=== PATIENT | female | born 1945 | race Caucasian/White ===

== ENCOUNTER 2018-02-17 09:26 | Outpatient (CLI) | payer MEDICARE ==
--- NOTE | 2018-02-17 11:55 | RAD ---
FOUR VIEWS LUMBAR SPINE: HISTORY: Fall, back pain, M54.16 and R93. FINDINGS: AP, lateral, and flexion extension views lumbar spine obtained. Four views of the lumbar spine demonstrate disk space height loss with sclerotic changes seen in the inferior end plate of L3 and superior end plate of L4. This is compatible with some end plate degene rative changes. There also appears to be some irregularity at the L4-5 intervertebral disk space. N o evidence of acute fracture is seen. IMPRESSION: L3-4 and to a lesser degree L4-5 degenerative disk change with adjacent end plate irregularity. No a cute fracture is seen. POS: [facility]
--- NOTE | 2018-02-17 12:06 | CT ---
HEAD CT WITHOUT CONTRAST: HISTORY: The patient fell and hit the left side of the head. COMPARISON: None. TECHNIQUE: A noncontrast head CT is performed from the skull base to the skull vertex. FINDINGS: No parenchymal hemorrhage. No extraaxial hematoma. No midline shift. The basilar cisterns are conte nt. Age appropriate atrophy. Cortical dolan white matter differentiation is preserved. The ventricles and sulci are patent and symmetric. The calvarium is intact. Adequate aeration of the sinuses and mastoid air cells. Cavernous carotid atherosclerosis is noted. IMPRESSION: No intracranial posttraumatic sequelae. POS: [facility]
--- NOTE | 2018-02-17 12:50 | MRI ---
MRI LUMBAR SPINE WITH AND WITHOUT CONTRAST: TECHNIQUE: Multiplanar, multisequential imaging of the lumbar spine obtained. Postcontrast images obtained with administration of 14 cc MultiHance IV. INDICATION: Low back pain. Prior spinal surgery in 2017. COMPARISON: No comparison studies available. FINDINGS: The lumbar vertebrae maintain height and alignment. There are degenerative disk changes at all level s. Loss of disk space most prominent at L1-2, L3-3, and L3-4. There are end plate deformities prese nt at all of the lumbar disk levels above L5. End plate deformities are most prominent at L3-4. Deg enerative end plate changes are noted at multiple levels. There is an indeterminate lesion involving the posterior L5 vertebra which measures approximately 1.0 cm. This lesion is located posteriorly and abuts the superior end plate of L5. It does show mild e nhancement on postcontrast images. It is low T2 and low T1 in intensity. It is not apparent on plai n films performed earlier today. At L1-2, mild disk bulge flattens the thecal sac. Mild facet arthrosis. These changes result in a v jazmin mild central canal stenosis. At L2-3, broad-based disk bulge more prominent. Facet hypertrophy is present. Mild to moderate cent ral canal stenosis is present. Bilateral foraminal stenosis due to diffuse disk bulge and facet hype rtrophy. At L3-4, broad-based disk bulge flattens the thecal sac anteriorly. Facet and ligamentous hypertroph y. Mild to moderate central canal stenosis. Bilateral foraminal stenosis secondary to disk bulge an d hypertrophic change. At L4-5, diffuse disk bulge combined with facet hypertrophy results in mild to moderate central canal stenosis. Bilateral foraminal narrowing is also present at this level. At L5-S1, mild diffuse disk bulge. No significant central canal stenosis. Disk bulge extends into t he foramina bilaterally and appears to contact both exiting L5 nerve roots. Facet hypertrophy and ar throsis is noted. IMPRESSION: 1. Degenerative disk changes at multiple levels of the lumbar spine with posterior disk bulge and de grees of central canal stenosis and foraminal encroachment as described above. 2. There is an indeterminate lesion involving the L5 vertebra posteriorly which does show enhancemen t on postcontrast images. Metastatic lesion is not excluded. Close followup recommended. If there is a history of malignancy in this patient, recommend further evaluation with bone scan. POS: [facility]
[2018-02-17] MEDS ORDERED: Gadobenate Dimeglumine 529 MG/1 ML (20ML VIAL) ONE (13:42)
== END 2018-02-17 09:27 | disposition home or self-care (01) ==
LOC: TBSIIMAG 09:26
PROVIDERS: ATTEND Surgery
DX: M47.26 Other spondylosis with radiculopathy, lumbar region (principal); R93.0 Abnormal findings on diagnostic imaging of skull and head, not elsewhere classified; M48.061 Spinal stenosis, lumbar region without neurogenic claudication; M89.9 Disorder of bone, unspecified
CPT/HCPCS: 70450; 72120; 72158; 82565; A9579

== ENCOUNTER 2018-05-03 09:42 | Outpatient (CLI) | payer MEDICARE ==
--- NOTE | 2018-05-03 12:39 | MRI ---
MRI THORACIC SPINE NONCONTRAST: DATE: 05/03/18. HISTORY: A 72-year-old female with thoracic radiculitis. COMPARISON: None. FINDINGS: There are multiple focal intraosseous lesions of varying sizes that are hypointense on T1WI heterogen eously hyperintense on STIR, in many vertebral bodies, and some in pedicles, and a few at spinous pro cesses. Almost every thoracic vertebral body is involved, with the exceptions of T2, T7, and T11. M inimal chronic loss of height of several vertebral bodies, but no acute or subacute compression fract ure; no marrow edema. No high-grade central spinal canal stenosis or high-grade neural foraminal humaira nosis at any level in the thoracic spine. No cord impingement or priynaka nerve root impingement at any level. No moderate-sized or large disk herniation that protrudes into the spinal canal. No major p athology of perivertebral spaces. IMPRESSION: 1. Numerous focal intraosseous lesions: either osseous metastases or multiple myeloma, involving mos t levels of the thoracic spine (and upper lumbar spine). 2. No central spinal canal stenosis, high-grade neural foraminal stenosis, cord impingement, or nerv e root impingement, at any level in the thoracic spine. 3. No pathologic fracture. Code T POS: [facility]
== END 2018-05-03 09:43 | disposition home or self-care (01) ==
LOC: SCSMRI 09:42
PROVIDERS: ATTEND Specialist
DX: M54.14 Radiculopathy, thoracic region (principal)
CPT/HCPCS: 72146

== ENCOUNTER 2018-05-17 12:08 | Outpatient (CLI) | payer MEDICARE | END 2018-05-17 12:09 | disposition home or self-care (01) | LOC: BICRAD 12:08 | PROVIDERS: ATTEND Internal Medicine Medical Oncology | DX: C90.00 Multiple myeloma not having achieved remission (principal) | CPT/HCPCS: 36415; 71046; 77075; 80053; 82232; 82248; 83615; 83883; 84100; 84165; 84550 ==

== ENCOUNTER 2018-05-25 09:18 | Outpatient (CLI) | payer MEDICARE ==
--- NOTE | 2018-05-25 14:27 | NM ---
NUCLEAR MEDICINE BONE SCAN: COMPARISON: None. HISTORY: Secondary malignant neoplasm of the spine. COMPARISON: MRI thoracic spine 05/03/18. TECHNIQUE: A nuclear medicine bone scan was performed after the administration of 31.6 mCi of Technetium 99m-MDP . FINDINGS: Abnormal increased uptake of the radiopharmaceutical was seen throughout the spine. The includes the cervical, thoracic, and lumbar spine. Abnormal uptake of radiopharmaceutical was seen in the left s houlder near the glenoid. Abnormal uptake may also be present in the proximal aspect of both humeri. Abnormal uptake is seen on the anterior view in the right skull. Soft tissue activity is unremarkable. IMPRESSION: Multifocal areas of abnormal uptake of the radiopharmaceutical is suspicious for osseous metastatic d isease. POS: [facility]
== END 2018-05-25 09:19 | disposition home or self-care (01) ==
LOC: NM 09:18
PROVIDERS: ATTEND Internal Medicine Medical Oncology
DX: C79.51 Secondary malignant neoplasm of bone (principal); C80.1 Malignant (primary) neoplasm, unspecified; R94.8 Abnormal results of function studies of other organs and systems
CPT/HCPCS: 78306; A9503

== ENCOUNTER 2018-06-03 13:24 | Outpatient (CLI) | payer MEDICARE ==
--- NOTE | 2018-06-03 16:08 | PET ---
PET CT: HISTORY: Unknown primary to bone. TECHNIQUE: PET scanning with CT attenuation correction was performed from the base of the brain through the prox imal thighs following the intravenous administration of 13.6 mCi F18-FDG in the left antecubital mike a. Imaging was performed after an uptake interval of 58 minutes. CORRELATION: Bone scan dated 05/25/18. MRI thoracic spine dated 05/03/18. MRI lumbar spine dated 02/17/18. FINDINGS: Numerous hypermetabolic skeletal lesions are seen involving the humeral heads bilaterally, ribs, enti re spine, and pelvis. There are a couple of hypermetabolic periaortic lymph nodes with a SUV of 3.6 in the aortocaval lymph node and 3.4 in the lymph node anterior to the aorta. No [place] hypermetabolism is seen in the neck, chest, or pelvis. No hypermetabolic pulmonary nodules, liver, or adrenal lesions are identified. There is physiologic activity in the GI and tracts, and the visualized portions of the brain. CT scan used for attenuation correction demonstrates no evidence of pleural effusions or ascites. IMPRESSION: Diffuse osseous metastatic disease and retroperitoneal lymph [place] metastases. POS: [facility]
== END 2018-06-03 13:25 | disposition home or self-care (01) ==
LOC: PET 13:24
PROVIDERS: ATTEND Internal Medicine Hematology & Oncology
DX: C79.51 Secondary malignant neoplasm of bone (principal); C80.1 Malignant (primary) neoplasm, unspecified; C77.2 Secondary and unspecified malignant neoplasm of intra-abdominal lymph nodes
CPT/HCPCS: 78815; A9552

== ENCOUNTER 2018-06-09 11:11 | Day surgery (SDC) | payer MEDICARE ==
[2018-06-08 13:05] VITALS: BMI 30.9
[2018-06-09 11:44] LABS: INR-International Normal Ratio 1.2; PTT 34.4 SEC (22.9-36.1); Prothrombin Time 14.8 SEC (12.0-14.7)
[2018-06-09 12:45] VITALS: BP 140/78; TEMP 98.4
--- NOTE | 2018-06-09 16:26 | CT ---
CT GUIDED BONE BIOPSY: Date: 06/09/18 HISTORY: Bone lesion biopsy. COMPARISON: PET CT dated 06/03/18. TECHNIQUE/FINDINGS: Patient was brought to the CT suite. All questions were answered. The patient's buttocks were prepped and draped in the normal sterile fashion, as the patient was in the prone position on the CT gantry. Informed consent was already obtained. Timeout performed. 7 mL of buffered lidocaine was instilled i nto the superficial and deep soft tissues. After adequate anesthesia, a small dermatotomy was made. U sing a 10 gauge needle, the sclerotic area of the left iliac bone was accessed. A total of two 2.0 cm cores were obtained. Pathology was present and demonstrated adequacy. IMPRESSION: Technically successful CT guided bone biopsy. POS: [facility]
== END 2018-06-09 15:15 | disposition home or self-care (01) ==
LOC: CT 11:11
PROVIDERS: ATTEND Internal Medicine Hematology & Oncology
PROC: 0QB33ZX Excision of Left Pelvic Bone, Percutaneous Approach, Diagnostic (ICD-10-PCS; principal; 2018-06-09)
DX: C79.51 Secondary malignant neoplasm of bone (principal); E03.9 Hypothyroidism, unspecified; Z87.891 Personal history of nicotine dependence; Z79.899 Other long term (current) drug therapy; Z88.1 Allergy status to other antibiotic agents
CPT/HCPCS: 20225; 77002; 85610; 85730; 88307; 88311; 88341; 88342; 88360

== ENCOUNTER 2018-07-12 12:18 | Outpatient (CLI) | payer MEDICARE ==
--- NOTE | 2018-07-14 15:53 | NM ---
OCTREOSCAN STUDY: 07/14/18 INDICATION: History of osseous metastatic disease without primary malignancy localized. RADIOPHARMACEUTICAL: 5.8 millicuries of Indium 111 octreoscan. Whole body images were obtained at the 24 and 48 time period. SPECT images were obtained at the 24 ho ur time period. Comparisons are made with prior whole body bone scan dated 05/25/[address] dated . FINDINGS: There is expected background activity seen within the spleen, liver, and kidneys as well as within th e blood pool. This persists on the 48 hour whole body images. No abnormal collection of radiotracer i s seen beyond the normal expected background activity. IMPRESSION: Negative octreoscan. POS: [facility]
== END 2018-07-12 12:19 | disposition home or self-care (01) ==
LOC: NM 12:18
PROVIDERS: ATTEND Internal Medicine Hematology & Oncology
DX: C79.51 Secondary malignant neoplasm of bone (principal)
CPT/HCPCS: 78802; 78803; A4641; A9572

== ENCOUNTER 2018-07-23 11:39 | Day surgery (SDC) | payer MEDICARE ==
[2018-07-22 08:26] VITALS: BMI 30.6
[2018-07-23 12:40] LABS: #Eosinphils 0.1 thou/uL (0.0-0.7); #Lymphocytes 0.8 thou/uL (1.20-3.40); #Monocytes 0.6 thou/uL (0.11-0.59); #Neutrophils 5.8 thou/uL (1.40-6.50); %Basophils 0.4 % (0.0-1.0); %Eosinophils 0.9 % (0.0-10.0); %Lymphocytes 11.6 % (21.0-51.0); %Monocytes 7.6 % (0.0-10.0); %Neutrophils 79.5 % (42.0-75.0); Hemoglobin 12.2 g/dL (12.0-16.0); Mean Corpuscular HGB CONC 32.4 g/dL (32.0-36.0); Mean Corpuscular Hemoglobin 29.8 pg (27.0-31.0); Mean Corpuscular Volume 92.2 fL (78.0-98.0); Mean Platelet Volume 9.5 fL (7.4-10.4); Platelet Count 110 thou/uL (130-400); RBC Distribution Width 13.3 % (11.5-14.5); Red Blood Cell (RBC) Count 4.07 mill/uL (4.20-5.40); White Blood Cell (WBC) Count 7.3 thou/uL (4.8-10.8)
[2018-07-23 13:01] LABS: Anion Gap 11 mmol/L (10-20); BUN (Urea Nitrogen) 12 mg/dL (9.8-20.1); Calc. Creatinine Clearance 82 mL/min (70-130); Carbon Dioxide 21 mmol/L (23-31); Chloride 104 mmol/L (98-107); Estimated GFR-MDRD 79; Potassium 3.8 mmol/L (3.5-5.1); Sodium 132 mmol/L (136-145)
[2018-07-23 13:02] LABS: Calcium 7.5 mg/dL (7.8-10.44); Glucose 115 mg/dL (83-110)
[2018-07-23] MEDS ORDERED: CEFAZOLIN 2 GM/50 ML BAG ONE (13:33)
[2018-07-23] MEDS ORDERED: PHENYLEPHRINE-NS 100 MCG/ML 10 ML SYRINGE ONE (13:48)
[2018-07-23] MEDS ORDERED: Lidocaine 1% PF 5 ML VIAL ONE (13:48)
[2018-07-23] MEDS ORDERED: PROPOFOL 200 MG/20 ML VIAL ONE (13:48)
[2018-07-23] MEDS ORDERED: Midazolam HCl 2 mg/2 ml Vial ONE (14:52)
[2018-07-23] MEDS ORDERED: Fentanyl 100 MCG/2 ML VIAL ONE ×2 (14:52→15:19)
[2018-07-23] MEDS ORDERED: Bupivacaine/Epinephrine 0.25% 30 ML VIAL ONE (15:27)
[2018-07-23] MEDS ORDERED: Lidocaine 2% PF 5 ML VIAL ONE (15:27)
--- NOTE | 2018-07-23 17:49 | RAD ---
PORTABLE CHEST: History: Mediport catheter placement. FINDINGS: Heart size is within normal limits. Left sided Mediport catheter is seen. The catheter tip overlies t he superior vena cava. No signs of pneumothorax. IMPRESSION: Post Mediport catheter placement. No signs of pneumothorax. POS: [facility]
--- NOTE | 2018-07-26 14:03 | OP ---
DATE OF PROCEDURE: 07/23/2018 PROCEDURE PERFORMED: Left subclavian MediPort placement. PREOPERATIVE DIAGNOSIS: Metastatic carcinoid tumor. HISTORY: Ms. Matson is a 72-year-old woman with metastatic carcinoid tumor of unclear origin. She re quires MediPort placement for ongoing chemotherapy. PROCEDURE IN DETAIL: After informed consent was obtained and appropriate preoperative antibiotics ad ministered, the patient was taken to the operating room where she was placed in the supine position a nd anesthesia was administered. She was prepped and draped in a standard sterile fashion and local a nesthesia was infused to skin and subcutaneous tissues overlying the deltopectoral groove. The patie nt was placed in Trendelenburg position and left subclavian vein was easily accessed by the standard approach with excellent flow of dark venous non-pulsatile blood. A wire was threaded and confirmed b y fluoroscopy to be in superior vena cava. A subcutaneous pocket was created and a MediPort po cket secured with suture. The dilator and sheath were placed over the wire, and the dilator and wire removed leaving the sheath in place. A MediPort tubing was advanced through the sheath, which was s plit secured and easily aspirated dark venous nonpulsatile blood. tissues were reapproxi mated with Monocryl suture and the skin incisions were closed with Monocryl suture. Jairo mabond dressings were placed and the patient was taken to the recovery in good condition. Estimated blood loss was minimal. There were no complications. There were no specimens.
== END 2018-07-23 18:00 | disposition home or self-care (01) ==
LOC: SDC 11:39
PROVIDERS: ATTEND Surgery
PROC: 0JH63WZ Insertion of Totally Implantable Vascular Access Device into Chest Subcutaneous Tissue and Fascia, Percutaneous Approach (ICD-10-PCS; principal; 2018-07-23)
DX: C7A.00 Malignant carcinoid tumor of unspecified site (principal); C7B.03 Secondary carcinoid tumors of bone; M48.00 Spinal stenosis, site unspecified; J45.909 Unspecified asthma, uncomplicated; E07.9 Disorder of thyroid, unspecified; Z87.891 Personal history of nicotine dependence; Z79.891 Long term (current) use of opiate analgesic; Z79.899 Other long term (current) drug therapy; Z88.1 Allergy status to other antibiotic agents; Z88.2 Allergy status to sulfonamides; Z88.8 Allergy status to other drugs, medicaments and biological substances; Z91.040 Latex allergy status
CPT/HCPCS: 36561; 71045; 76000; 80048; 85025; C1788; 36415; J1642; J2001; J2250; J2704; J3010

== ENCOUNTER 2018-08-25 11:58 | Inpatient (IN) | payer MEDICARE ==
[~2018-08-25 11:58] MED LIST: Iopamidol 370 76% 100 ML VIAL ONE
[2018-08-25 13:20] LABS: #Lymphocytes 0.9 thou/uL (1.20-3.40); #Monocytes 0.2 thou/uL (0.11-0.59); #Neutrophils 6.9 thou/uL (1.40-6.50); %Basophils 0.2 % (0.0-1.0); %Eosinophils 0.2 % (0.0-10.0); %Lymphocytes 11.4 % (21.0-51.0); %Monocytes 2.5 % (0.0-10.0); %Neutrophils 85.7 % (42.0-75.0); Hemoglobin 11.2 g/dL (12.0-16.0); Mean Corpuscular HGB CONC 33.8 g/dL (32.0-36.0); Mean Corpuscular Hemoglobin 30.8 pg (27.0-31.0); Mean Corpuscular Volume 91.1 fL (78.0-98.0); Mean Platelet Volume 9.8 fL (7.4-10.4); Platelet Count 141 thou/uL (130-400); RBC Distribution Width 15.8 % (11.5-14.5); Red Blood Cell (RBC) Count 3.63 mill/uL (4.20-5.40); White Blood Cell (WBC) Count 8.1 thou/uL (4.8-10.8)
[2018-08-25] MEDS ORDERED: Morphine 2 MG/ML SYRINGE ONE (13:21)
[2018-08-25 13:25] LABS: INR-International Normal Ratio 1.9; PTT 33.4 SEC (22.9-36.1); Prothrombin Time 21.9 SEC (12.0-14.7)
[2018-08-25 13:48] LABS: ALT (SGPT) 15 U/L (8-55); AST (SGOT) 25 U/L (5-34); Albumin 3.4 g/dL (3.4-4.8); Alkaline Phosphatase 428 U/L (40-150); Anion Gap 12 mmol/L (10-20); BUN (Urea Nitrogen) 12 mg/dL (9.8-20.1); Bilirubin, Total 1.5 mg/dL (0.2-1.2); CK (CPK) 62 U/L (29-168); Calc. Creatinine Clearance 0 mL/min (70-130); Calcium 7.2 mg/dL (7.8-10.44); Carbon Dioxide 15 mmol/L (23-31); Chloride 114 mmol/L (98-107); Estimated GFR-MDRD 74; Globulin 2.7 g/dL (2.4-3.5); Glucose 125 mg/dL (83-110); Lipase 39 U/L (8-78); Potassium 3.8 mmol/L (3.5-5.1); Protein, Total 6.1 g/dL (6.0-8.3); Sodium 137 mmol/L (136-145)
--- NOTE | 2018-08-25 14:08 | RAD ---
SINGLE VIEW OF THE CHEST: Comparison: 07-23-18 History: Nausea, vomiting. Patient is taking chemotherapy for bone metastases and history of myeloma. FINDINGS: Single view of the chest shows a normal sized cardiomediastinal silhouette. The Mediport is unchanged in position. There is no evidence of consolidation, mass, or pleural effusion. IMPRESSION: No evidence of acute cardiopulmonary disease. POS: [facility]
--- NOTE | 2018-08-25 14:15 | CT ---
CT ABDOMEN AND PELVIS WITH CONTRAST: Comparison: 02-24-15 History: Abdominal pain and bloody diarrhea. Patient is on chemotherapy for bone metastases. History of multiple myeloma. Technique: Multiple contiguous axial images were obtained in a CT of the abdomen and pelvis with cont rast. Coronal reformats were performed. FINDINGS: The gallbladder is distended. The liver, kidneys, adrenal glands, spleen, and pancreas are unremarkab le. There is apparent thickening of the wall of the rectum and sigmoid colon. A few scattered diverticula are seen in this location. No free air or free fluid are seen in the abdomen or pelvis. The remainde r of the colon shows no significant wall thickening. The small bowel is normal in caliber without sig nificant distention. No abnormal or pelvic lymphadenopathy are seen. The reproductive organs are eith er atrophic or have been removed. There appears to be air in the wall of the urinary bladder. A small amount of nondependent air is also seen in the urinary bladder. Diffuse sclerotic lesions are seen in the skeleton consistent with osseous metastatic disease. The vi sualized inferior thorax and abdominal wall soft tissues are unremarkable. IMPRESSION: 1. Nonspecific thickening of the chiu of the colon. This could be secondary to colitis. 2. Air in the urinary bladder. This could be secondary to an emphysematous cystitis. 3. Nonspecific distention of the gallbladder. This could be secondary to a fasting state. POS: [facility]
[2018-08-25 14:35] LABS: Bilirubin Negative (Negative); Blood, Urine Small (Negative); Clarity TURBID (Clear); Glucose, Urine (Dipstick) Negative (Negative); Leukocyte Large (Negative); Nitrite Negative (Negative); Protein, Urine (Dipstick) Trace mg/dL (Neg-Trace); Specific Gravity, Urine 1.018 (1.002-1.036); Urobilinogen 0.2 mg/dL (0.2-1.0)
[2018-08-25 14:39] LABS: Hyaline Casts/LPF 0-3 HYALINE CAST LPF (0-3 Hyaline); Pathc Cast-AUWi Flag 0.43 (0-2.49); Squamous Epithelial 0-3 HPF (0-3)
[2018-08-25 14:40] LABS: Yeast-AUWi Flag 56.4 (0-25.0)
[2018-08-25 14:53] LABS: Bacteria/HPF 3+ HPF (None Seen); Yeast-All Forms None Seen HPF (None Seen)
[2018-08-25] MEDS ORDERED: Cefepime 1 GM in Sodium Chloride 0.9% 100 ML IVPB SCH (16:00)
[2018-08-25] MEDS ORDERED: Pantoprazole 40 MG VIAL ONE (16:05)
[2018-08-25] MEDS ORDERED: HYDROcodone/Acetaminophen 10/325 mg Tablet ONE (16:16)
[2018-08-25] MEDS ORDERED: metroNIDAZOLE 500 MG/100 ML BAG ONE (16:18)
[2018-08-25 16:38] LABS: Magnesium 0.8 mg/dL (1.6-2.6)
[2018-08-25] MEDS ORDERED: Magnesium Sulfate 4 GM in Sodium Chloride 0.9% 250 ML 250 ML IVPB SCH (17:00)
[2018-08-25] MEDS ORDERED: Senokot S 8.6-50 MG TAB PO PRN (17:33)
[2018-08-25] MEDS ORDERED: Ondansetron ODT 4 MG TAB PO PRN (17:33)
[2018-08-25] MEDS ORDERED: Calcium Carbonate 500 MG ChewTAB PO PRN (17:33)
[2018-08-25] MEDS ORDERED: Acetaminophen 325 MG TAB PO PRN (17:33)
[2018-08-25] MEDS ORDERED: Ondansetron PF 4 MG/2 ML Vial IVP PRN (17:33)
[2018-08-25 17:48] VITALS: BMI 29.2
[2018-08-25] MEDS: Sodium Bicarbonate 50 MEQ in Dextrose 5 %-0.45 % NaCl 1,000 ML IV SCH (18:17)
[2018-08-25 19:04] LABS: Hemoglobin 10.9 g/dL (12.0-16.0)
--- NOTE | 2018-08-25 19:21 | HP ---
PRIMARY CARE PHYSICIAN: Dr. Quan in [place]. PRIMARY ONCOLOGIST: Dr. Kline. PRIMARY WIRE TINNER: Dr. Everett. CHIEF COMPLAINT: Bleeding per rectum of 1-day duration along with abdominal discomfort. HISTORY OF PRESENT ILLNESS: The patient is a 72-year-old female with multiple myeloma, currently on chemotherapy, presented to the emergency room with above symptoms. Over the last 24 hours, the patient developed loose stools which were bloody along with mucus. She also had abdominal discomfort mainly around the periumbilical region. It was 4/10 without any aggravating or relieving factor. She felt generally weak and fatigued. She also lost her appetite. She was seen by Dr. Kline recently and was found to have absolute neutrophil count of 1200. She was advised to use mask at home to prevent getting infections. She denies recent travel or eating outside. No dysuria, hematuria, urgency, nausea, vomiting, or significant weight loss reported. In the emergency room, her initial vital signs show temperature 98.5, respiration of 20, pulse rate of 92 with a blood pressure of 135/89 with O2 saturation 98% on room air. A CT scan of the abdomen was consistent with colitis with suspected emphysematous cystitis. She was started on antibiotics. PAST MEDICAL HISTORY: 1. Multiple myeloma. 2. GERD. 3. Hypothyroidism. 4. Chronic pain. 5. Renal calculi. 6. History of compression fractures. PAST SURGICAL HISTORY: 1. Intestinal bypass in 1971. 2. Bladder repair. 3. Bilateral cataract surgery. ALLERGIES: 1. THE PATIENT IS ALLERGIC TO CIPROFLOXACIN THAT CAUSES HER TONGUE TO SWELL. 2. THE PATIENT IS ALSO ALLERGIC TO BACTRIM AND LATEX. CURRENT HOME MEDICATIONS: Levothyroxine 50 mcg daily, [place] as needed, OxyContin 15 mg twice a day, spironolactone and Prilosec as needed. SOCIAL HISTORY: The patient currently lives at home with her family. She denies any tobacco, alcohol, or drug use. She makes her own decision with the help of her family. She is full code. FAMILY HISTORY: Mother with hypertension and diabetes. One brother with stroke. REVIEW OF SYSTEMS: All other review of systems was reviewed and were found negative. PHYSICAL EXAMINATION: VITAL SIGNS: As discussed above. GENERAL: A 72-year-old female, ill-appearing, with multiple blankets covering her. HEENT: Head, atraumatic and normocephalic. Sclerae are anicteric. Dry mucous membranes. No oral lesions. NECK: Supple. No JVD appreciated. No carotid bruit. LUNGS: Clear to auscultation bilaterally. No wheezing, rales, or rhonchi. HEART: S1 and S2 present. Regular rate and rhythm. No rubs or gallops appreciated. ABDOMEN: Soft. There was tenderness around the periumbilical region. No guarding or rigidity noted. No costovertebral angle tenderness. RECTAL: Examination done in the emergency room showed external hemorrhoids along with some blood in the rectum. EXTREMITIES: No edema or calf tenderness. NEUROLOGY: Grossly nonfocal. Moves all 4 extremities. PSYCHIATRY: Alert, awake, and oriented x3. SKIN: Warm and dry. LYMPH NODES: No palpable lymph nodes in the neck. Peripheral, vascular, radial pulses palpable bilaterally. MUSCULOSKELETAL: No joint swelling or tenderness. LABORATORY FINDINGS: WBC is 8.1 from 3.2 last week, hemoglobin 11.2, platelet 141, neutrophil percentage 85.7, INR 1.9, PT 21.9. Chemistry showed sodium 137, potassium 3.8, chloride 114, bicarb 15, BUN 12, creatinine 0.77, phosphorus 2.0, magnesium 0.8, total bilirubin 1.5, alkaline phosphatase 428, it was 525 last week. Urinalysis showed greater than 50 wbc's with 3+ bacteria. Stool for occult blood was positive. CT scan of the abdomen and pelvis by my review, as discussed above. Chest x-ray by my review was negative for infiltrate. EKG by my review showed sinus rhythm without significant ST-T wave changes. This showed left ventricular hypertrophy. IMPRESSION: 1. Sepsis secondary to urinary tract infection as well as colitis. 2. Emphysematous cystitis/urinary tract infection. 3. Colitis, suspected infectious. 4. Metabolic acidosis with normal lactic acid. 5. Abnormal LFTs of unclear etiology. 6. Hypomagnesemia at 0.8, hypophosphatemia, phosphorus is 2.0. 7. Multiple myeloma, on chemotherapy. 8. Hypertension with hypertensive heart disease. 9. Chronic pain syndrome. 10. Hypothyroidism. PLAN: The patient will be monitored on the medical floor. We will replace electrolytes. We will consult Oncology as well as Gastroenterology. We will monitor H and H. We will continue IV fluids with sodium bicarbonate. We will start her on cefepime as well as Flagyl. Stool workup will be sent. Urine cultures have been sent and pending. We will check postvoid residual. We will resume other home medications. Plan of care was discussed with the patient in detail. She stated understanding. Job ID: [id number]
[2018-08-25] MEDS: oxyCODONE ER 10 MG TAB PO SCH (20:35)
[2018-08-25] MEDS: metroNIDAZOLE 500 MG in Premix Bag 1 BAG IVPB SCH (22:53)
[2018-08-26] MEDS: Sodium Bicarbonate 50 MEQ in Dextrose 5 %-0.45 % NaCl 1,000 ML IV SCH ×3 (00:30→20:47)
[2018-08-26 00:44] LABS: Hemoglobin 10.4 g/dL (12.0-16.0)
[2018-08-26 01:15] LABS: ALT (SGPT) 14 U/L (8-55); AST (SGOT) 22 U/L (5-34); Albumin 3.3 g/dL (3.4-4.8); Alkaline Phosphatase 393 U/L (40-150); Anion Gap 12 mmol/L (10-20); BUN (Urea Nitrogen) 10 mg/dL (9.8-20.1); Bilirubin, Total 1.6 mg/dL (0.2-1.2); Calc. Creatinine Clearance 78 mL/min (70-130); Carbon Dioxide 16 mmol/L (23-31); Chloride 114 mmol/L (98-107); Estimated GFR-MDRD 79; Globulin 2.5 g/dL (2.4-3.5); Glucose 129 mg/dL (83-110); Magnesium 1.9 mg/dL (1.6-2.6); Potassium 3.6 mmol/L (3.5-5.1); Protein, Total 5.8 g/dL (6.0-8.3); Sodium 138 mmol/L (136-145)
[2018-08-26 01:19] LABS: Phosphorus 1.9 mg/dL (2.3-4.7)
[2018-08-26] MEDS: Levothyroxine Sodium 50 MCG TAB PO SCH (05:29)
[2018-08-26] MEDS: metroNIDAZOLE 500 MG in Premix Bag 1 BAG IVPB SCH ×3 (05:29→22:56)
[2018-08-26] MEDS: HYDROcodone/Acetaminophen 10/325 mg Tablet PO PRN ×2 (05:37→12:44)
[2018-08-26 06:12] LABS: Band 8 % (5-11); Hemoglobin 9.9 g/dL (12.0-16.0); Lymphocytes 13 % (21-51); MDiff Complete? YES; Mean Corpuscular HGB CONC 34.5 g/dL (32.0-36.0); Mean Corpuscular Hemoglobin 31.1 pg (27.0-31.0); Mean Corpuscular Volume 89.9 fL (78.0-98.0); Monocytes 1 % (0-10); Neutrophil 78 % (42-75); Platelet Count 128 thou/uL (130-400); RBC Distribution Width 15.8 % (11.5-14.5); Red Blood Cell (RBC) Count 3.19 mill/uL (4.20-5.40); White Blood Cell (WBC) Count 8.6 thou/uL (4.8-10.8)
[2018-08-26 07:30] LABS: Hemoglobin 10.4 g/dL (12.0-16.0)
[2018-08-26] MEDS: Folic Acid 1 MG TAB PO SCH (08:02)
[2018-08-26] MEDS: K-Phos Neutral 250 MG TAB PO SCH ×3 (08:02→17:24)
[2018-08-26] MEDS: Cefepime 1 GM in Sodium Chloride 0.9% 100 ML IVPB SCH ×2 (08:02→20:48)
[2018-08-26] MEDS: Cyanocobalamin (Vitamin B-12) 1,000 MCG TAB PO SCH (08:02)
[2018-08-26] MEDS: Multivit, Therapeutic 1 TAB PO SCH (08:02)
[2018-08-26] MEDS: oxyCODONE ER 10 MG TAB PO SCH ×2 (08:04→20:52)
--- NOTE | 2018-08-26 08:49 | ULT ---
RIGHT UPPER QUADRANT ULTRASOUND: DATE: 08/26/2018. COMPARISON: None. HISTORY: Abnormal liver function tests, sepsis. TECHNIQUE: Multiplanar, dolan scale sonographic imaging of the right upper quadrant obtained. FINDINGS: Evaluation of the pancreas demonstrates nonspecific diffuse mild prominence of the pancreatic duct me asuring 3-4 mm in AP dimension. However, the common bile duct does not appear dilated, measuring in the 5-6 mm range. There is mild peripheral irregularity involving the hepatic parenchyma with heterogeneity of the hepa tic parenchyma, which may signify underlying hepatocellular disease. There is nonspecific distention of the gallbladder, measuring 5.1 cm in transverse dimension. There is echogenic material within the gallbladder which may signify nonshadowing small stones and/or gallbladder sludge. The gallbladder is mildly thickened measuring in the 3-4 mm range. The structures engineer reports a positive Murillo's sign. The right kidney measured 11.6 cm craniocaudal dim ension and demonstrates no stone, hydronephrosis, or mass lesion. IMPRESSION: The gallbladder is distended, there is mild gallbladder wall thickening, and the structures engineer reports a positive Murillo's sign. Findings are suspicious for cholecystitis in the proper clinical setting. This could be better assessed via hepatobiliary scan as clinically warranted. CODE T POS: [facility]
[2018-08-26] MEDS ORDERED: Phytonadione 10 MG/ML AMP PO SCH (09:00)
--- NOTE | 2018-08-26 16:09 | CON ---
DATE OF CONSULTATION: REASON FOR CONSULTATION: Neuroendocrine tumor. HISTORY OF PRESENT ILLNESS: A 72-year-old female with history of metastatic neuroendocrine tumor with mets to bones. Currently, on upper sioux and etoposide chemotherapy with good clinical response thus far, presenting to the hospital with bloody diarrhea over the last 24 hours. I saw the patient in clinic on Thursday, August 23, 2018, and the patient appeared very well, and her severe pain from her bone mets had dramatically improved, and she reported no other symptoms. Beginning Thursday around 11 a.m., she began having blood diarrhea, multiple episodes. She thought it would improve, but it worsened overnight and that brought her into the hospital on Saturday, August 25, 2018. She denies any nausea, vomiting, any headache, blurry vision, dizziness, fevers, or chills. She denies any current abdominal pain, any burning on urination, or urinary frequency. The patient had a CT of the abdomen in the ER that showed colitis and possible emphysematous cystitis. Urinalysis was consistent with UTI. She was started on cefepime and flagyl. REVIEW OF SYSTEMS: A 10-point review of systems negative except as per HPI. PAST MEDICAL HISTORY: Neuroendocrine tumor with mets to bone, currently on chemotherapy; hypothyroidism; acid reflux; kidney stones; and history of compression fractures. PAST SURGICAL HISTORY: Bilateral cataract repair, bladder repair, and intestinal bypass in 1971. ALLERGIES: CIPROFLOXACIN, BACTRIM, AND LATEX. CURRENT MEDICATIONS: Reviewed. SOCIAL HISTORY: Lives at home with her family. No tobacco, alcohol, or drug use. FAMILY HISTORY: No family history of cancer. PHYSICAL EXAMINATION: VITAL SIGNS: Temperature 98.1, pulse 82, respirations 18, sating 97% on room air, and blood pressure 128/67. GENERAL APPEARANCE: The patient lying in bed, in no acute distress. HEENT: Normocephalic, atraumatic. NECK: Supple. CARDIOVASCULAR: S1 and S2. Regular rhythm and rate. RESPIRATION: Clear to auscultation bilaterally without wheezes, rales, or rhonchi. ABDOMEN: Soft, nondistended, and nontender. No right upper quadrant tenderness. Bowel sounds positive. EXTREMITIES: No peripheral edema. NEUROLOGIC: Nonfocal. Cranial nerves 2 through 12 are grossly intact. PSYCHIATRIC: Awake, alert, oriented x3. LABORATORY DATA: White blood cells 8.6; hemoglobin 11.2 on admission, currently 10.4; platelets 128; neutrophils 85.7%; and absolute neutrophil count of 6.9. Sodium 138, potassium 3.6, BUN 10, creatinine 0.73, glucose 129, calcium 7.0 with albumin 3.3, phosphorus 1.9, magnesium 0.8 up to 1.9, and alkaline phosphatase 393. IMAGING DATA: Chest x-ray shows no evidence of acute cardiopulmonary disease. CT of the abdomen and pelvis with contrast shows nonspecific thickening of the chiu of the colon, possibly secondary to colitis. Also, shows air in the urinary bladder, which could be secondary to emphysematous cystitis and nonspecific distention in the gallbladder. Right upper quadrant ultrasound shows distended gallbladder with mild gallbladder wall thickening and positive Murillo sign elicited by stenographer. Findings are suspicious for cholecystitis in the proper clinical setting. ASSESSMENT AND PLAN: A 72-year-old female with neuroendocrine carcinoma with mets to bone, currently on chemotherapy, presenting with bloody diarrhea and urinary tract infection. The patient is not neutropenic and is currently on cefepime and flagyl for colitis and urinary tract infection. She is still having bloody diarrhea, however, she states the amount of blood is decreasing. She has dropped a gram in her hemoglobin, but this is currently stable as well. Her vital signs are stable, and she is not tachycardic. The patient appears very well. We will continue to monitor her blood counts as she just received chemotherapy and they may drop. She had planned to get Neulasta after finishing chemotherapy, however, was not able to get the last day due to hospital admission. If her counts do drop, we can give her Neupogen injections. I agree with GI consult and continuing her antibiotics. Ultrasound did show possible cholecystitis, however, the patient does not elicit any signs or symptoms of this at this time. We will continue to follow with you. Thank you for this consult. Job ID: [id number]
[2018-08-26] MEDS ORDERED: Melatonin 3 MG TAB PO PRN (19:49)
--- NOTE | 2018-08-26 22:00 | PDOC.PN ---
- Subjective Encounter Start Date: 08/26/18 Encounter Start Time: 09:00 Patient seen and examined for Sepsis. Feeling better. some diarrhea. No hematochezia. No other complaints. No overnight events - Objective Resuscitation Status - Order Detail: 08/25/18 17:33 Resuscitation Status Routine Resuscitation Status: FULL: Full Resuscitation MAR Reviewed: Yes Vital Signs & Weight: Vital Signs (12 hours) Temp Pulse Pulse Pulse Pulse Resp BP 08/26/18 16:20 98.5 F 82 16 08/26/18 10:30 82 82 82 142/59 H 08/26/18 10:24 82 82 82 132/75 BP BP BP Pulse Ox 08/26/18 16:20 117/67 97 08/26/18 10:30 145/73 H 132/75 08/26/18 10:24 145/73 H 142/59 H Weight Weight 155 lb I&O: 08/25/18 08/26/18 08/27/18 06:59 06:59 06:59 Intake Total 1745 Balance 1745 Result Diagrams: 08/26/18 07:16 08/26/18 00:25 Phys Exam - Physical Examination Constitutional: NAD Respiratory: no wheezing, no rhonchi Cardiovascular: RRR, no rub Gastrointestinal: soft, non-tender, positive bowel sounds Musculoskeletal: no edema Neurological: moves all 4 limbs Dx/Plan - Plan DVT proph w/SCDs 1. Sepsis secondary to urinary tract infection as well as colitis. 2. 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 4. Metabolic acidosis with normal lactic acid. 5. Abnormal LFTs of unclear etiology. 6. Hypomagnesemia / hypophosphatemia 7. Multiple myeloma, on chemotherapy. 8. Hypertension with hypertensive heart disease. 9. Chronic pain syndrome. 10. Hypothyroidism. PLAN: Cont Atbx Alinia started AM labs Cont current meds as below Review of Systems - Review of Systems Respiratory: negative: Cough, Dry, Shortness of Breath, Hemoptysis, SOB with Excertion, Pleuritic Pain, Sputum, Wheezing Cardiovascular: negative: chest pain, palpitations, orthopnea, paroxysmal nocturnal dyspnea, edema, light headedness, other Gastrointestinal: negative: Nausea, Vomiting, Abdominal Pain, Diarrhea, Constipation, Melena, Hematochezia, Other - Medications/Allergies Allergies/Adverse Reactions: Allergies Allergy/AdvReac Type Severity Reaction Status Date / Time ciprofloxacin [From Cipro] Allergy Severe Verified 07/22/18 08:26 ciprofloxacin HCl Allergy Severe Verified 07/22/18 08:26 [From Cipro] sulfamethoxazole Allergy Severe Verified 07/22/18 08:26 [From Bactrim] trimethoprim [From Bactrim] Allergy Severe Verified 07/22/18 08:26 latex Allergy Verified 07/22/18 08:26 Milk Containing Products Allergy Verified 08/25/18 22:41 Medications: Current Medications Acetaminophen (Tylenol) 650 mg PO Q4H PRN PRN Reason: Headache/Fever/Mild Pain (1-3) Hydrocodone Bitart/Acetaminophen ([place] 10/325) 1 tab PO Q4H PRN PRN Reason: Mild-Moderate Pain (1-5) Last Admin: 08/26/18 12:44 Dose: 1 tab Calcium Carbonate (Tums) 1,000 mg PO Q4H PRN PRN Reason: Heartburn or Indigestion Cyanocobalamin (Vitamin B-12) 1,000 mcg PO DAILY [facility] Last Admin: 08/26/18 08:02 Dose: 1,000 mcg Folic Acid (Folvite) 1 mg PO DAILY [facility] Last Admin: 08/26/18 08:02 Dose: 1 mg Sodium Bicarbonate 50 meq/ (Dextrose/Sodium Chloride) 1,050 mls @ 125 mls/hr IV [id number] [facility] Last Admin: 08/26/18 20:47 Dose: 1,050 mls Metronidazole 500 mg/ Device 100 mls @ 100 mls/hr IVPB Q8HR [facility] Last Admin: 08/26/18 13:47 Dose: 100 mls Cefepime HCl 1 gm/ Sodium (Chloride) 100 mls @ 200 mls/hr IVPB 0800,2000 [facility] Last Admin: 08/26/18 20:48 Dose: 100 mls Levothyroxine Sodium (Synthroid) 50 mcg PO 0600 [facility] Last Admin: 08/26/18 05:29 Dose: 50 mcg Melatonin (Melatonin) 3 mg PO HSPRN PRN PRN Reason: Insomnia Multivitamins (Theragran) 1 tab PO DAILY [facility] Last Admin: 08/26/18 08:02 Dose: 1 tab Nitazoxanide (Alinia) 500 mg PO BID [facility] Stop: 09/05/18 21:01 Last Admin: 08/26/18 20:52 Dose: 500 mg Ondansetron HCl (Zofran Odt) 4 mg PO Q6H PRN PRN Reason: Nausea/Vomiting Ondansetron HCl (Zofran) 4 mg IVP Q6H PRN PRN Reason: Nausea/Vomiting Oxycodone HCl (Oxycontin) 10 mg PO Q12HR [facility] Last Admin: 08/26/18 20:52 Dose: 10 mg Phosphorus (Kphos Neutral) 500 mg PO TID-[facility] Last Admin: 08/26/18 17:24 Dose: 500 mg Senna/Docusate Sodium (Senokot S) 2 tab PO BID PRN PRN Reason: Constipation Sodium Chloride (Flush - Normal Saline) 10 ml IVF PRN PRN PRN Reason: Saline Flush
--- NOTE | 2018-08-26 22:23 | CON ---
DATE OF CONSULTATION: HISTORY OF PRESENT ILLNESS: Ms. Matson was hospitalized yesterday when she presented to the emergency room with complaints of severe diarrhea, cramping, and some rectal bleeding. She is having bowel movements about every hour and a half. This started after her second course of chemotherapy for multiple myeloma. 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 Personally, she notes that her abdominal pain is diminished. She has taken hydrocodone. Diarrhea is occurring about every hour and a half. The diarrhea predominantly today has been just very watery and profuse. She has been hemodynamically stable since admission. She had a CAT scan that showed a thickened colon, also emphysematous cystitis and also possible thickened gallbladder. She denies any specific right upper quadrant pain. Here, she has been stable since admission with no significant bleeding. PAST MEDICAL HISTORY: Multiple myeloma, reflux, hypothyroidism, chronic back pain, renal calculi, history of compression fractures, cirrhosis. PAST SURGICAL HISTORY: Intestinal bypass in 1971, previous bladder surgery, previous bilateral cataract surgery. She had EGD in March of 2018 with grade 2 varices. She had a colonoscopy in June when her bone lesions were discovered without metastatic disease from the colon, this was a normal colonoscopy. REVIEW OF SYSTEMS: Negative for dysphagia, odynophagia, rashes, malaise, arthralgias, sweat, fever, headache, shortness of breath, dyspnea on exertion, adenopathy. In fact, her bone pain she was having previously, improved remarkably since her first course of chemo. ALLERGIES: INCLUDE CIPROFLOXACIN, BACTRIM, AND LATEX. MEDICATIONS: 1. Levothyroxine. 2. [place]. 3. Oxycodone. 4. Spironolactone. 5. Prilosec. SOCIAL HISTORY: The patient lives at home with her family in [facility]. She denies smoking, drinking, or using drugs. FAMILY HISTORY: Hypertension and diabetes. PRESENT MEDICATIONS: Here in the hospital, 1. Tylenol. 2. [place]. 3. Tums. 4. Cefepime. 5. Folvite. 6. Synthroid. 7. Metronidazole. 8. Theragran. 9. Zoloft. 10. Zofran. 11. Oxycodone. 12. K-phos. 13. Senokot. 14. D5 with sodium bicarb. PHYSICAL EXAMINATION: GENERAL: The patient is resting comfortably in bed. She is in no distress. She is smiling. HEENT: Oropharynx without lesions or ulcers. NECK: Supple. No adenopathy. LUNGS: Clear. HEART: Regular rate and rhythm. No rubs, gallops, or murmurs. ABDOMEN: Soft and nontender with no rebound or guarding. There is no palpable tenderness to the right upper quadrant or rebound. VITAL SIGNS: Temperature is 98.1, pulse 82. She has been afebrile since admission. Blood pressure is 142/59. EXTREMITIES: No clubbing, cyanosis, or edema. LABORATORY DATA: Hemoglobin is 10.4 at 7:00 this morning, it was 9.9 at 4:00 in the morning, it was 10.4 at midnight, and it was 10.9 yesterday at 1800 hours and was 11.2 yesterday at 1300 hours. White count is 8.6, platelet count is 128. INR is 1.2. Sodium 138, potassium 3.6, BUN and creatinine are 10 and 0.7, bicarb is 16, chloride is 116, anion gap is 8, calcium 7, phosphorus is 1.9, magnesium is 1.9, up from 0.8, bilirubin is 1.6, AST and ALT are 22 and 14, alk phos is 293, protein is 5.8. AFP tumor marker was 2.6 in 2015. Urine; red blood cells 11-20, white blood cells greater than 50, large leukocyte esterase, 3+ bacteria. Previous workup for autoimmune liver disease was negative with negative AMA serum antibody, IgG and IgM, negative. Hepatitis A antibody total positive indicating immunity in 2015. IMAGING DATA: Ultrasound showed no gallstone, slightly thickened gallbladder wall. Slightly distended gallbladder. Chest x-ray normal distention in the gallbladder. Stool studies, Campylobacter and Ciguatoxins negative. Routine cultures. Stool, normal, jim many. Parasite screen positive for cryptosporidium, negative for Giardia, that is on antibody test, occult blood positive, Clostridium difficile negative. ASSESSMENT: 1. Multiple myeloma on chemotherapy with recent severe diarrheal illness after chemotherapy. 2. Dehydration with hypomagnesemia and phosphatemia, secondary to diarrhea. 3. Positive cryptosporidium in the stool, it is unclear if this is the true pathogen, but she has been immunosuppressed and it would be reasonable to treat that. We will continue broad spectrum otherwise. 4. Gallbladder findings. She does not have tenderness to right upper quadrant on my exam. Right now, she is not septic and I would avoid cholecystectomy in a patient with cirrhosis and melanoma. If there becomes a concern about this, a HIDA scan can be obtained. 5. As far as the colitis noted on the CAT scan against portal hypertensive change as she has known cirrhosis from ADDISON. Agree with management, otherwise, we will continue to follow with you. Job ID: [id number]
[2018-08-27] MEDS: Sodium Bicarbonate 50 MEQ in Dextrose 5 %-0.45 % NaCl 1,000 ML IV SCH (02:43)
[2018-08-27] MEDS: Levothyroxine Sodium 50 MCG TAB PO SCH (05:24)
[2018-08-27] MEDS: metroNIDAZOLE 500 MG in Premix Bag 1 BAG IVPB SCH ×3 (05:24→21:13)
[2018-08-27 06:31] LABS: Band 6 % (5-11); Hemoglobin 9.6 g/dL (12.0-16.0); Lymphocytes 28 % (21-51); MDiff Complete? YES; Mean Corpuscular HGB CONC 34.2 g/dL (32.0-36.0); Mean Corpuscular Hemoglobin 30.9 pg (27.0-31.0); Mean Corpuscular Volume 90.4 fL (78.0-98.0); Mean Platelet Volume 9.9 fL (7.4-10.4); Monocytes 1 % (0-10); Neutrophil 65 % (42-75); Platelet Count 136 thou/uL (130-400); RBC Distribution Width 15.6 % (11.5-14.5); Red Blood Cell (RBC) Count 3.12 mill/uL (4.20-5.40); White Blood Cell (WBC) Count 6.5 thou/uL (4.8-10.8)
[2018-08-27 06:34] LABS: ALT (SGPT) 12 U/L (8-55); AST (SGOT) 21 U/L (5-34); Alkaline Phosphatase 343 U/L (40-150); Anion Gap 9 mmol/L (10-20); BUN (Urea Nitrogen) 6 mg/dL (9.8-20.1); Bilirubin, Total 2.4 mg/dL (0.2-1.2); Calc. Creatinine Clearance 87 mL/min (70-130); Calcium 6.9 mg/dL (7.8-10.44); Carbon Dioxide 22 mmol/L (23-31); Chloride 109 mmol/L (98-107); Estimated GFR-MDRD 88; Globulin 2.3 g/dL (2.4-3.5); Glucose 104 mg/dL (83-110); Magnesium 1.2 mg/dL (1.6-2.6); Protein, Total 5.3 g/dL (6.0-8.3); Sodium 137 mmol/L (136-145)
[2018-08-27 07:49] LABS: INR-International Normal Ratio 1.7; PTT 36.1 SEC (22.9-36.1)
[2018-08-27] MEDS ORDERED: Magnesium Sulfate 4 GM in Sodium Chloride 0.9% 250 ML 250 ML IVPB SCH (08:00)
[2018-08-27] MEDS: K-Phos Neutral 250 MG TAB PO SCH ×3 (09:15→16:54)
[2018-08-27] MEDS: Cefepime 1 GM in Sodium Chloride 0.9% 100 ML IVPB SCH ×2 (09:21→21:12)
[2018-08-27] MEDS: Potassium Chloride 40 MEQ in Sodium Chloride 0.45% 1,000 ML IV SCH (09:22)
[2018-08-27] MEDS: Cyanocobalamin (Vitamin B-12) 1,000 MCG TAB PO SCH (10:33)
[2018-08-27] MEDS: oxyCODONE ER 10 MG TAB PO SCH ×2 (10:33→21:12)
[2018-08-27] MEDS: Multivit, Therapeutic 1 TAB PO SCH (10:33)
[2018-08-27] MEDS: Folic Acid 1 MG TAB PO SCH (10:33)
[2018-08-27] MEDS: Potassium Chloride 10 MEQ TAB PO SCH ×3 (10:34→16:54)
--- NOTE | 2018-08-27 20:45 | PDOC.PN ---
- Subjective Encounter Start Date: 08/27/18 Encounter Start Time: 10:15 Patient seen and examined for Colitis/UTI. Feels better. Diarrhea improving. No new complaints. No overnight events - Objective Resuscitation Status - Order Detail: 08/25/18 17:33 Resuscitation Status Routine Resuscitation Status: FULL: Full Resuscitation MAR Reviewed: Yes Vital Signs & Weight: Vital Signs (12 hours) Temp Pulse Resp BP BP Pulse Ox 08/27/18 19:38 98.6 F 83 16 143/77 H 99 08/27/18 15:58 99.0 F 86 20 114/70 97 08/27/18 11:22 99.7 F H 99 18 149/82 H 93 L Weight Weight 155 lb I&O: 08/26/18 08/27/18 08/28/18 06:59 06:59 06:59 Intake Total 1745 1412 Balance 1745 1412 Result Diagrams: 08/28/18 01:59 08/28/18 01:59 Phys Exam - Physical Examination Constitutional: NAD Respiratory: no wheezing, no rhonchi Cardiovascular: RRR, no rub Gastrointestinal: soft, non-tender, positive bowel sounds Musculoskeletal: no edema Neurological: moves all 4 limbs Dx/Plan - Plan DVT proph w/SCDs 1. Sepsis secondary to Colitis/UTI 2. 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 4. Metabolic acidosis with normal lactic acid. 5. Abnormal LFTs of unclear etiology. 6. Hypomagnesemia / hypophosphatemia/Hypokalemia 7. Neuroendocrine carcinoma, on chemotherapy. 8. Hypertension with hypertensive heart disease. 9. Chronic pain syndrome. 10. Hypothyroidism. 11. Cirrhosis due to ADDISON PLAN: Cont Cefepime and Flagyl On Alinia Replace electrolytes DC planning in 1-2 days Monitor LFTs AM labs Cont current meds as below Laboratory Tests 08/27/18 05:40 Potassium 3.0 L Phosphorus 2.0 L Magnesium 1.2 L Review of Systems - Review of Systems Respiratory: negative: Cough, Dry, Shortness of Breath, Hemoptysis, SOB with Excertion, Pleuritic Pain, Sputum, Wheezing Cardiovascular: negative: chest pain, palpitations, orthopnea, paroxysmal nocturnal dyspnea, edema, light headedness, other - Medications/Allergies Allergies/Adverse Reactions: Allergies Allergy/AdvReac Type Severity Reaction Status Date / Time ciprofloxacin [From Cipro] Allergy Severe Verified 07/22/18 08:26 ciprofloxacin HCl Allergy Severe Verified 07/22/18 08:26 [From Cipro] sulfamethoxazole Allergy Severe Verified 07/22/18 08:26 [From Bactrim] trimethoprim [From Bactrim] Allergy Severe Verified 07/22/18 08:26 latex Allergy Verified 07/22/18 08:26 Milk Containing Products Allergy Verified 08/25/18 22:41 Medications: Current Medications Acetaminophen (Tylenol) 650 mg PO Q4H PRN PRN Reason: Headache/Fever/Mild Pain (1-3) Hydrocodone Bitart/Acetaminophen ([place] 10/325) 1 tab PO Q4H PRN PRN Reason: Mild-Moderate Pain (1-5) Last Admin: 08/26/18 12:44 Dose: 1 tab Calcium Carbonate (Tums) 1,000 mg PO Q4H PRN PRN Reason: Heartburn or Indigestion Cyanocobalamin (Vitamin B-12) 1,000 mcg PO DAILY [facility] Last Admin: 08/27/18 10:33 Dose: Not Given Folic Acid (Folvite) 1 mg PO DAILY [facility] Last Admin: 08/27/18 10:33 Dose: Not Given Metronidazole 500 mg/ Device 100 mls @ 100 mls/hr IVPB Q8HR [facility] Last Admin: 08/27/18 13:33 Dose: 100 mls Cefepime HCl 1 gm/ Sodium (Chloride) 100 mls @ 200 mls/hr IVPB 0800,2000 [facility] Last Admin: 08/27/18 09:21 Dose: 100 mls Potassium Chloride 40 meq/ (Sodium Chloride) 1,020 mls @ 75 mls/hr IV .[id number] [facility] Last Admin: 08/27/18 09:22 Dose: 1,020 mls Levothyroxine Sodium (Synthroid) 50 mcg PO 0600 [facility] Last Admin: 08/27/18 05:24 Dose: 50 mcg Melatonin (Melatonin) 3 mg PO HSPRN PRN PRN Reason: Insomnia Last Admin: 08/26/18 22:57 Dose: 3 mg Multivitamins (Theragran) 1 tab PO DAILY [facility] Last Admin: 08/27/18 10:33 Dose: Not Given Nitazoxanide (Alinia) 500 mg PO BID [facility] Stop: 09/05/18 21:01 Last Admin: 08/27/18 10:34 Dose: Not Given Ondansetron HCl (Zofran Odt) 4 mg PO Q6H PRN PRN Reason: Nausea/Vomiting Ondansetron HCl (Zofran) 4 mg IVP Q6H PRN PRN Reason: Nausea/Vomiting Oxycodone HCl (Oxycontin) 10 mg PO Q12HR [facility] Last Admin: 08/27/18 10:33 Dose: Not Given Phosphorus (Kphos Neutral) 500 mg PO TID-WM [facility] Last Admin: 08/27/18 16:54 Dose: 500 mg Potassium Chloride (Klor-Con 10) 10 meq PO TID-WM [facility] Last Admin: 08/27/18 16:54 Dose: 10 meq Senna/Docusate Sodium (Senokot S) 2 tab PO BID PRN PRN Reason: Constipation Sodium Chloride (Flush - Normal Saline) 10 ml IVF PRN PRN PRN Reason: Saline Flush
[2018-08-28] MEDS: Potassium Chloride 40 MEQ in Sodium Chloride 0.45% 1,000 ML IV SCH ×3 (03:08→23:35)
[2018-08-28] MEDS: metroNIDAZOLE 500 MG in Premix Bag 1 BAG IVPB SCH ×3 (05:41→20:56)
[2018-08-28] MEDS: Levothyroxine Sodium 50 MCG TAB PO SCH (05:41)
[2018-08-28 06:45] LABS: Band 1 % (5-11); Lymphocytes 29 % (21-51); MDiff Complete? YES; Mean Corpuscular HGB CONC 32.5 g/dL (32.0-36.0); Mean Corpuscular Hemoglobin 29.5 pg (27.0-31.0); Mean Corpuscular Volume 90.7 fL (78.0-98.0); Monocytes 1 % (0-10); Neutrophil 69 % (42-75); Platelet Count 178 thou/uL (130-400); RBC Distribution Width 15.6 % (11.5-14.5); Red Blood Cell (RBC) Count 3.41 mill/uL (4.20-5.40); White Blood Cell (WBC) Count 6.1 thou/uL (4.8-10.8)
[2018-08-28 06:50] LABS: ALT (SGPT) 14 U/L (8-55); AST (SGOT) 24 U/L (5-34); Albumin 3.3 g/dL (3.4-4.8); Alkaline Phosphatase 358 U/L (40-150); Anion Gap 11 mmol/L (10-20); BUN (Urea Nitrogen) 5 mg/dL (9.8-20.1); Calc. Creatinine Clearance 88 mL/min (70-130); Calcium 7.6 mg/dL (7.8-10.44); Carbon Dioxide 22 mmol/L (23-31); Chloride 109 mmol/L (98-107); Estimated GFR-MDRD 90; Globulin 2.7 g/dL (2.4-3.5); Glucose 93 mg/dL (83-110); Magnesium 1.7 mg/dL (1.6-2.6); Potassium 3.9 mmol/L (3.5-5.1); Sodium 138 mmol/L (136-145)
[2018-08-28 07:09] LABS: Phosphorus 1.7 mg/dL (2.3-4.7)
[2018-08-28] MEDS ORDERED: Potassium Phosphate 15 MMOL in Sodium Chloride 0.9% 250 ML 250 ML IVPB SCH (07:30)
[2018-08-28] MEDS: Potassium Chloride 10 MEQ TAB PO SCH ×3 (08:20→16:09)
[2018-08-28] MEDS: K-Phos Neutral 250 MG TAB PO SCH ×3 (08:20→16:10)
[2018-08-28] MEDS: Folic Acid 1 MG TAB PO SCH (08:21)
[2018-08-28] MEDS: Multivit, Therapeutic 1 TAB PO SCH (08:21)
[2018-08-28] MEDS: oxyCODONE ER 10 MG TAB PO SCH ×2 (08:21→20:57)
[2018-08-28] MEDS: Cyanocobalamin (Vitamin B-12) 1,000 MCG TAB PO SCH (08:21)
[2018-08-28] MEDS: Cefepime 1 GM in Sodium Chloride 0.9% 100 ML IVPB SCH ×2 (11:36→20:55)
--- NOTE | 2018-08-28 11:58 | EKG ---
Test Reason : Blood Pressure : / mmHG Vent. Rate : 085 BPM Atrial Rate : 085 BPM P-R Int : 168 ms QRS Dur : 088 ms QT Int : 380 ms P-R-T Axes : 037 -14 059 degrees QTc Int : 452 ms Normal sinus rhythm Voltage criteria for left ventricular hypertrophy Abnormal ECG Confirmed by BILLY ANDRADE, LEILANI ([id number]), marketing editor TRISTAN GERMAN ([id number]) on 08/28/2018 11:57:47 AM Referred By: Confirmed By:LEILANI CERVANTES MD
--- NOTE | 2018-08-28 22:37 | PDOC.PN ---
- Subjective Encounter Start Date: 08/28/18 Encounter Start Time: 08:30 Patient seen and examined for Colitis/UTI. Feels better. 1 episode of lose BM earlier. No new complaints. No overnight events - Objective Resuscitation Status - Order Detail: 08/25/18 17:33 Resuscitation Status Routine Resuscitation Status: FULL: Full Resuscitation MAR Reviewed: Yes Vital Signs & Weight: Vital Signs (12 hours) Temp Pulse Resp BP Pulse Ox 08/28/18 21:26 98.6 F 87 18 132/68 95 08/28/18 16:13 98.7 F 80 18 120/71 98 08/28/18 11:25 98.8 F 78 20 115/72 99 Weight Weight 155 lb I&O: 08/27/18 08/28/18 08/29/18 06:59 06:59 06:59 Intake Total 1745 1412 2400 Balance 1745 1412 2400 Result Diagrams: 08/28/18 01:59 08/28/18 01:59 Additional Labs: Laboratory Tests 08/27/18 08/28/18 05:40 01:59 Total Bilirubin 2.4 H 2.0 H Phys Exam - Physical Examination Constitutional: NAD Respiratory: no wheezing, no rhonchi Cardiovascular: RRR, no rub Gastrointestinal: soft, non-tender, positive bowel sounds Musculoskeletal: no edema Neurological: moves all 4 limbs Dx/Plan - Plan DVT proph w/SCDs 1. Sepsis secondary to Colitis/UTI 2. 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 4. Metabolic acidosis with normal lactic acid. 5. Abnormal LFTs of unclear etiology. 6. Hypomagnesemia / hypophosphatemia/Hypokalemia 7. Neuroendocrine carcinoma, on chemotherapy. 8. Hypertension with hypertensive heart disease. 9. Chronic pain syndrome. 10. Hypothyroidism. 11. Cirrhosis due to ADDISON PLAN: Cont Cefepime/Flagyl/Alinia On Alinia Replace Phosphorus AM labs Cont current meds as below Review of Systems - Review of Systems Respiratory: negative: Cough, Dry, Shortness of Breath, Hemoptysis, SOB with Excertion, Pleuritic Pain, Sputum, Wheezing Cardiovascular: negative: chest pain, palpitations, orthopnea, paroxysmal nocturnal dyspnea, edema, light headedness, other - Medications/Allergies Allergies/Adverse Reactions: Allergies Allergy/AdvReac Type Severity Reaction Status Date / Time ciprofloxacin [From Cipro] Allergy Severe Verified 07/22/18 08:26 ciprofloxacin HCl Allergy Severe Verified 07/22/18 08:26 [From Cipro] sulfamethoxazole Allergy Severe Verified 07/22/18 08:26 [From Bactrim] trimethoprim [From Bactrim] Allergy Severe Verified 07/22/18 08:26 latex Allergy Verified 07/22/18 08:26 Milk Containing Products Allergy Verified 08/25/18 22:41 Medications: Current Medications Acetaminophen (Tylenol) 650 mg PO Q4H PRN PRN Reason: Headache/Fever/Mild Pain (1-3) Hydrocodone Bitart/Acetaminophen ([place] 10/325) 1 tab PO Q4H PRN PRN Reason: Mild-Moderate Pain (1-5) Last Admin: 08/26/18 12:44 Dose: 1 tab Calcium Carbonate (Tums) 1,000 mg PO Q4H PRN PRN Reason: Heartburn or Indigestion Cyanocobalamin (Vitamin B-12) 1,000 mcg PO DAILY [facility] Last Admin: 08/28/18 08:21 Dose: 1,000 mcg Folic Acid (Folvite) 1 mg PO DAILY [facility] Last Admin: 08/28/18 08:21 Dose: 1 mg Metronidazole 500 mg/ Device 100 mls @ 100 mls/hr IVPB Q8HR [facility] Last Admin: 08/28/18 20:56 Dose: 100 mls Cefepime HCl 1 gm/ Sodium (Chloride) 100 mls @ 200 mls/hr IVPB 0800,2000 [facility] Last Admin: 08/28/18 20:55 Dose: 100 mls Potassium Chloride 40 meq/ (Sodium Chloride) 1,020 mls @ 75 mls/hr IV .[id number] [facility] Last Admin: 08/28/18 10:57 Dose: Not Given Levothyroxine Sodium (Synthroid) 50 mcg PO 0600 [facility] Last Admin: 08/28/18 05:41 Dose: 50 mcg Melatonin (Melatonin) 3 mg PO HSPRN PRN PRN Reason: Insomnia Last Admin: 08/26/18 22:57 Dose: 3 mg Multivitamins (Theragran) 1 tab PO DAILY [facility] Last Admin: 08/28/18 08:21 Dose: 1 tab Nitazoxanide (Alinia) 500 mg PO BID [facility] Stop: 09/05/18 21:01 Last Admin: 08/28/18 20:56 Dose: 500 mg Ondansetron HCl (Zofran Odt) 4 mg PO Q6H PRN PRN Reason: Nausea/Vomiting Ondansetron HCl (Zofran) 4 mg IVP Q6H PRN PRN Reason: Nausea/Vomiting Oxycodone HCl (Oxycontin) 10 mg PO Q12HR [facility] Last Admin: 08/28/18 20:57 Dose: 10 mg Phosphorus (Kphos Neutral) 500 mg PO TID-[facility] Last Admin: 08/28/18 16:10 Dose: 500 mg Potassium Chloride (Klor-Con 10) 10 meq PO TID-WM [facility] Last Admin: 08/28/18 16:09 Dose: 10 meq Senna/Docusate Sodium (Senokot S) 2 tab PO BID PRN PRN Reason: Constipation Sodium Chloride (Flush - Normal Saline) 10 ml IVF PRN PRN PRN Reason: Saline Flush
[2018-08-29] MEDS: Levothyroxine Sodium 50 MCG TAB PO SCH (06:04)
[2018-08-29] MEDS: metroNIDAZOLE 500 MG in Premix Bag 1 BAG IVPB SCH ×3 (06:05→20:39)
[2018-08-29 06:57] LABS: ALT (SGPT) 12 U/L (8-55); AST (SGOT) 24 U/L (5-34); Albumin 3.4 g/dL (3.4-4.8); Alkaline Phosphatase 351 U/L (40-150); Anion Gap 11 mmol/L (10-20); BUN (Urea Nitrogen) 4 mg/dL (9.8-20.1); Bilirubin, Total 1.4 mg/dL (0.2-1.2); Calc. Creatinine Clearance 92 mL/min (70-130); Calcium 8.1 mg/dL (7.8-10.44); Carbon Dioxide 21 mmol/L (23-31); Chloride 110 mmol/L (98-107); Estimated GFR-MDRD Greater than 90; Globulin 2.6 g/dL (2.4-3.5); Glucose 98 mg/dL (83-110); Magnesium 1.4 mg/dL (1.6-2.6); Potassium 4.9 mmol/L (3.5-5.1); Sodium 137 mmol/L (136-145)
[2018-08-29 07:05] LABS: Phosphorus 1.6 mg/dL (2.3-4.7)
[2018-08-29] MEDS ORDERED: Potassium Phosphate 30 MMOL in Sodium Chloride 0.9% 500 ML IVPB SCH (07:15)
[2018-08-29] MEDS: Magnesium 2 GM/50 ML 2 GM in Premix Bag 1 BAG IVPB SCH ×2 (08:01→12:10)
[2018-08-29] MEDS: K-Phos Neutral 250 MG TAB PO SCH ×3 (08:01→17:24)
[2018-08-29] MEDS: Potassium Chloride 10 MEQ TAB PO SCH ×3 (08:02→17:24)
[2018-08-29] MEDS: Cyanocobalamin (Vitamin B-12) 1,000 MCG TAB PO SCH (08:02)
[2018-08-29] MEDS: Multivit, Therapeutic 1 TAB PO SCH (08:02)
[2018-08-29] MEDS: Folic Acid 1 MG TAB PO SCH (08:02)
[2018-08-29] MEDS: Saccharomyces boulardii 250 MG CAP PO SCH (08:03)
[2018-08-29] MEDS: oxyCODONE ER 10 MG TAB PO SCH ×2 (08:03→20:37)
[2018-08-29 08:46] LABS: Band 4 % (5-11); Hemoglobin 10.7 g/dL (12.0-16.0); Hypersemented Neutrophil SLIGHT; Lymphocytes 28 % (21-51); MDiff Complete? YES; Mean Corpuscular HGB CONC 33.4 g/dL (32.0-36.0); Mean Corpuscular Hemoglobin 30.5 pg (27.0-31.0); Mean Corpuscular Volume 91.1 fL (78.0-98.0); Mean Platelet Volume 10.7 fL (7.4-10.4); Neutrophil 67 % (42-75); Platelet Count 204 thou/uL (130-400); RBC Distribution Width 15.6 % (11.5-14.5); Red Blood Cell (RBC) Count 3.53 mill/uL (4.20-5.40); White Blood Cell (WBC) Count 4.9 thou/uL (4.8-10.8)
[2018-08-29] MEDS: Cefepime 1 GM in Sodium Chloride 0.9% 100 ML IVPB SCH ×2 (09:07→20:38)
[2018-08-29] MEDS: Potassium Chloride 40 MEQ in Sodium Chloride 0.45% 1,000 ML IV SCH ×2 (12:35→22:38)
[2018-08-29] MEDS ORDERED: diphenhydrAMINE 25 MG CAP PO PRN (12:46)
--- NOTE | 2018-08-29 17:56 | PRG ---
DATE OF SERVICE: 08/29/2018 SUBJECTIVE: The patient is seen and examined at bedside. She is feeling significantly better. OBJECTIVE: VITAL SIGNS: Blood pressure is 157/69, pulse is 71, temperature is 97.8, maximal temperature is 99.7, her pulse oximetry is 95% on room air, respiratory rate is 18. HEENT: Head is atraumatic and normocephalic. Eyes are PERRLA. Sclerae nonicteric. Conjunctivae palish. Oral mucosa is moist. NECK: Supple. LUNGS: Clear. HEART: S1 and S2 normal. No S3, no S4. No any murmur. ABDOMEN: Soft, nontender. Bowel sounds are present. No organomegaly. EXTREMITIES: No clubbing, cyanosis, or edema. NEUROLOGIC: She is alert and oriented x4. There are no any sensory or motor deficits present. Cranial nerves are intact. LABORATORY DATA: Labs showed white count of 4.9, hemoglobin of 10.7, hematocrit 32.1, platelet count is 204. Sodium of 137, potassium 4.9, chloride 110, CO2 21, BUN 4, creatinine 0.62, phosphorus 1.6, magnesium 1.4, total bilirubin 1.4. Alkaline phosphatase 351. Urine culture, no growth in 24 hours. IMPRESSION: 1. Sepsis secondary to colitis. 2. Emphysematous cystitis. 3. Cryptosporidium colitis. 4. Metabolic acidosis, improved. 5. Neuroendocrine carcinoma, on chemotherapy. 6. Hypertension. 7. Hypothyroidism. 8. Cirrhosis due to nonalcoholic steatohepatitis. PLAN: Plan is to replace her phosphorus with 30 millimoles of phosphorus. Replace her magnesium with 2 g IV piggyback x2 doses today. We will check levels tomorrow morning. We will continue her Alinia. We will continue her metronidazole and we will continue her levothyroxine. She should be able to go home in the next 24 to 48 hours when she is replaced with her magnesium and phosphorus. Job ID: [id number]
--- NOTE | 2018-08-29 21:14 | PRG ---
DATE OF SERVICE: 08/27/2018 OBJECTIVE: VITAL SIGNS: Temperature max 99.7, T-current 99; pulse is 86, respirations are 12, and blood pressure 114/70. GENERAL: Ms. Matson is feeling much better. She states she has had 4 bowel movements today and about 3 last night. They were smaller and less frequent. She has no associated cramping. She states she is tolerating a liquid diet. ABDOMEN: Soft and nontender. EXTREMITIES: No clubbing, cyanosis, or edema. LABORATORY DATA: Hemoglobin is 9.6 and stable, white count is 6.5, and platelet counts are 136. INR is 1.7. Comprehensive metabolic profile notable for potassium of 3, calcium of 6.9, phosphorus of 2, and magnesium of 1.2. ASSESSMENT: 1. Diarrheal illness, etiology unclear. She did have cryptosporidium in the stool. have been other infectious etiology as well as with false positive cryptosporidium antigens. The patient does note she had cryptosporidium before once when she did travel to [place]. She is on nitazoxanide (Alinia) 500 p.o. b.i.d. 2. Hypokalemia, hypophosphatemia, and hypomagnesemia, secondary to diarrheal illness, improved. 3. Malignancy. I, yesterday, indicated in my note that she had multiple myeloma, but I am not correct; this is actually a neuroendocrine tumor, metastatic with unknown primary. 4. With regard to her thickened colon on CT scan, the etiology is unclear and may be actually more related to her portal hypertension from her cirrhosis as she has no overt signs of colitis with bloody stool at this point in time. 5. With regard to the question of a thickened gallbladder wall and slightly distended gallbladder on ultrasound and CT scan, she has no right upper quadrant pain, she has no symptoms of cholecystitis. This is again likely related to her portal hypertensive changes. 6. Cirrhosis secondary to intestinal bypass and fatty liver, stable at this time. RECOMMENDATION: 1. Continue electrolyte replacement. Continue nitazoxanide, which is the Alinia, for 7 to 10 days. 2. We would avoid narcotic sedatives, which could exacerbate hepatic encephalopathy no symptoms at this time. 3. We would continue to aggressively replace electrolytes and continue to monitor until her diarrhea resolves. Hopefully, if she keeps improving, she can go home in the next [address] Navarrete is on-call this weekend. Job ID: [id number]
[2018-08-30] MEDS: Levothyroxine Sodium 50 MCG TAB PO SCH (05:22)
[2018-08-30] MEDS: metroNIDAZOLE 500 MG in Premix Bag 1 BAG IVPB SCH ×2 (05:22→12:38)
[2018-08-30 05:54] LABS: Band 1 % (5-11); Hemoglobin 10.4 g/dL (12.0-16.0); Lymphocytes 30 % (21-51); MDiff Complete? YES; Mean Corpuscular HGB CONC 33.9 g/dL (32.0-36.0); Mean Corpuscular Hemoglobin 31.1 pg (27.0-31.0); Mean Corpuscular Volume 91.8 fL (78.0-98.0); Mean Platelet Volume 10.1 fL (7.4-10.4); Monocytes 8 % (0-10); Neutrophil 61 % (42-75); Platelet Count 198 thou/uL (130-400); RBC Distribution Width 15.8 % (11.5-14.5); Red Blood Cell (RBC) Count 3.34 mill/uL (4.20-5.40); White Blood Cell (WBC) Count 4.6 thou/uL (4.8-10.8)
[2018-08-30 07:27] LABS: ALT (SGPT) 13 U/L (8-55); AST (SGOT) 22 U/L (5-34); Albumin 3.3 g/dL (3.4-4.8); Alkaline Phosphatase 318 U/L (40-150); Anion Gap 10 mmol/L (10-20); BUN (Urea Nitrogen) 4 mg/dL (9.8-20.1); Bilirubin, Total 1.1 mg/dL (0.2-1.2); Calc. Creatinine Clearance 85 mL/min (70-130); Calcium 8.3 mg/dL (7.8-10.44); Carbon Dioxide 19 mmol/L (23-31); Chloride 114 mmol/L (98-107); Estimated GFR-MDRD 87; Globulin 2.6 g/dL (2.4-3.5); Glucose 99 mg/dL (83-110); Magnesium 1.7 mg/dL (1.6-2.6); Phosphorus 2.1 mg/dL (2.3-4.7); Potassium 4.8 mmol/L (3.5-5.1); Protein, Total 5.9 g/dL (6.0-8.3); Sodium 138 mmol/L (136-145)
[2018-08-30 08:17] VITALS: BP 124/64; TEMP 98.3
[2018-08-30] MEDS: Cefepime 1 GM in Sodium Chloride 0.9% 100 ML IVPB SCH (08:17)
[2018-08-30] MEDS: Saccharomyces boulardii 250 MG CAP PO SCH (08:19)
[2018-08-30] MEDS: Multivit, Therapeutic 1 TAB PO SCH (08:19)
[2018-08-30] MEDS: Folic Acid 1 MG TAB PO SCH (08:20)
[2018-08-30] MEDS: Cyanocobalamin (Vitamin B-12) 1,000 MCG TAB PO SCH (08:20)
[2018-08-30] MEDS: Potassium Chloride 10 MEQ TAB PO SCH ×2 (08:20→12:37)
[2018-08-30] MEDS: oxyCODONE ER 10 MG TAB PO SCH (08:30)
[2018-08-30] MEDS: K-Phos Neutral 250 MG TAB PO SCH ×2 (11:18→12:35)
[2018-08-30] MEDS ORDERED: HYDROcodone/Acetaminophen 10/325 mg Tablet PO PRN (12:26)
[2018-08-30] MEDS ORDERED: Dicyclomine 10 MG CAP PO PRN (12:26)
--- NOTE | 2018-08-30 13:57 | DIS ---
DATE OF ADMISSION: 08/25/2018 DATE OF DISCHARGE: 08/30/2018 TRANSFER OF CARE: DISPOSITION: Discharged home. PRIMARY CARE PROVIDER: Dr. Abel Quan. FINAL DIAGNOSES: 1. Sepsis syndrome. 2. Cryptosporidium gastroenteritis. 3. Colitis. 4. Cirrhosis with abnormal liver function tests. 5. Metabolic acidosis. 6. Hypokalemia, transient. 7. Metastatic carcinoid syndrome. DISCHARGE MEDICATIONS: Same as her home medicines except for the addition of: 1. Alinia 500 mg p.o. b.i.d. for 5 days. 2. Calcium carbonate daily. 3. Bentyl 10 mg p.r.n. 4. [place] 10/325 one every 4 hours as needed for pain per her primary care doctor. 5. Levothyroxine 50 mcg a day. 6. Vitamin E. 7. OxyContin 1 p.o. b.i.d. per her primary care doctor. 8. Spironolactone 50 mg every 2 days. 9. Tizanidine 4 mg at bedtime. ALLERGIES: TO CIPROFLOXACIN, SULFAMETHOXAZOLE, TRIMETHOPRIM. DIET: As tolerated. CODE STATUS: Full. PENDING AT TIME OF DISCHARGE: Nothing. HOSPITAL COURSE: The patient presented to the hospital with some rectal bleeding, abdominal discomfort, diarrhea. Her abdomen reveals tenderness with no guarding or rigidity. Chemistry showed metabolic acidosis. She was started on IV fluids. Monitoring electrolytes, CBC. Started on IV antibiotics. GI consult obtained. Dr. Everett GI noted to have positive Cryptosporidium in stool. The patient has a history of immunosuppression, on chemotherapy for carcinoid tumor. She was placed on Alinia. IV antibiotics just discontinued. Electrolytes replaced. She is currently doing very well. Abdomen is benign. Vital signs are stable. She is not having loose stools. She is desirous of going home. She is being discharged on her routine medicines with a prescription for Alinia. She knows to follow up with her primary care provider in 7 days, to follow up with Dr. Kline, her oncologist and follow up with Dr. Everett p.r.n. No procedures were done while she was in the hospital. Job ID: [id number] MTDD
[2018-08-30] MEDS ORDERED: tiZANidine HCl 4 MG TAB PO SCH (21:00)
[2018-08-30] MEDS ORDERED: Calcium Carbonate 600 MG TAB PO SCH (21:00)
[2018-08-31] MEDS ORDERED: Spironolactone 25 MG TAB PO SCH (09:00)
[2018-08-31] MEDS ORDERED: Levothyroxine Sodium 50 MCG TAB PO SCH (09:00)
== END 2018-08-30 15:17 | disposition home or self-care (01) | DRG 872 ==
LOC: ERS 11:58 → ERHOLD 14:57 → T4-A 17:41
PROVIDERS: ADMIT Internal Medicine; ATTEND Internal Medicine
DX: A41.9 Sepsis, unspecified organism (principal); K62.5 Hemorrhage of anus and rectum; C90.00 Multiple myeloma not having achieved remission; E87.2 Acidosis; C79.51 Secondary malignant neoplasm of bone; A07.2 Cryptosporidiosis; K21.9 Gastro-esophageal reflux disease without esophagitis; K52.9 Noninfective gastroenteritis and colitis, unspecified; N30.80 Other cystitis without hematuria; I11.9 Hypertensive heart disease without heart failure; E83.42 Hypomagnesemia; E83.39 Other disorders of phosphorus metabolism; G89.4 Chronic pain syndrome; E03.9 Hypothyroidism, unspecified; E87.6 Hypokalemia; K75.81 Nonalcoholic steatohepatitis (NASH); K74.60 Unspecified cirrhosis of liver; E86.0 Dehydration; Z88.8 Allergy status to other drugs, medicaments and biological substances; Z91.040 Latex allergy status; Z82.49 Family history of ischemic heart disease and other diseases of the circulatory system; Z83.3 Family history of diabetes mellitus; Z82.3 Family history of stroke
CPT/HCPCS: 36415; 71045; 74177; 76705; 80053; 81003; 81015; 82248; 82274; 82550; 82553; 83605; 83615; 83690; 83735; 83880; 84100; 84550; 85007; 85025; 85027; 85610; 85730; 87045; 87046; 87086; 87324; 87328; 87329; 87449; 87899; 93005; 96361; 96365; 96375; C9113; G8978-GP-CI; G8979-GP-CI; G8980-GP-CI; G8987-GO-CI; G8988-GO-CI; G8989-GO-CI; J0692; J1642; J1956; J2270; J3430; J3475; J3480; J7042; J7050

== ENCOUNTER 2018-10-12 13:08 | Outpatient (CLI) | payer MEDICARE ==
--- NOTE | 2018-10-12 16:59 | PET ---
PET SCAN WITH CT ATTENUATION CORRECTION. 10/12/18 HISTORY: Metastatic carcinoma with neuroendocrine features. Patient has undergone chemotherapy. COMPARISON: 06/03/18. CORRELATION: Nuclear medicine Octreotide scan 07/13/18, nuclear medicine bone scan 05/25/18. CT abdomen and pelvis 1 10/26/17. TECHNIQUE: PET scan with CT attenuation correction is performed at the base of the brain to the proximal thighs. Following the intravenous administration of 14 millicuries of [id number]. FINDINGS: HEAD AND NECK: There is no abnormal FDG localization. There is symmetric uptake involving the sternocleidomastoid mu scles and scalene muscles likely representing muscular contraction. CHEST: There is no abnormal FDG localization. ABDOMEN AND PELVIS: There is persistent FDG avidity involving the rectum with a maximum SUV of 3.1. This area of involvem ent corresponds to mucosal thickening noted on CT from 08/25/18. OSSEOUS STRUCTURES: CT used for attenuation correction demonstrates multifocal sclerotic lesions. Empirically, there appe ars to be increased uptake. However, when the maximum SUVs are measured, none of the identified lesio ns have a maximum SUV above 2.5. If there is concern for true osseous metastases, consider bone scan. Note, octreotide scan from June 2018 was negative. Bone scan from May 2018 was positive. IMPRESSION: 1. Persistent FDG avidity involving the rectum. 2. Extensive sclerotic lesions involving the osseous structures including the vertebra and ribs. Findings are presumed to represent treated metastases given interval sclerosis when compared to the most recent PET CT. There does appear to be increased FDG avidity, however, no evidence of increased SUV when measured at multiple levels. Findings may represent treated osseous metastasis. If there is still concern, bone scan can be performed. POS: [facility]
== END 2018-10-12 13:09 | disposition home or self-care (01) ==
LOC: PET 13:08
PROVIDERS: ATTEND Internal Medicine Hematology & Oncology
DX: C7A.098 Malignant carcinoid tumors of other sites (principal); C79.51 Secondary malignant neoplasm of bone
CPT/HCPCS: 78815; A9552

== ENCOUNTER 2018-12-30 09:12 | Outpatient (CLI) | payer MEDICARE ==
--- NOTE | 2018-12-30 11:04 | PET ---
Exam: PET CT skull to mid thigh COMPARISON: 10/12/2018 HISTORY: Rectal carcinoma with neuroendocrine features. Bone metastases. TECHNIQUE: A PET/CT was performed from the skull to the mid thigh after administration of 11.4 millic uries of F-18 FDG. Evaluation was performed on a [employer] workstation. FINDINGS: NECK: No areas of hypermetabolic activity CHEST: No areas of hypermetabolic activity ABDOMEN/PELVIS: There is a stable area of hypermetabolic activity in the rectum with a max SUV value of 4.9. No other areas of hypermetabolic activity are seen in the abdomen/pelvis. SKELETON: Diffuse hypermetabolic lesions are seen in this skeleton. This includes the spine, scapula, and bones of the pelvis, and proximal humeri. In addition, there are diffuse sclerotic lesions throu ghout the skeleton. Some of these regions demonstrate hypermetabolic activity and others do not. Some of the sclerotic lesions may represent treated metastatic disease. CT images used for attenuation correction show no significant abnormality. IMPRESSION: 1. Stable hypermetabolic activity adjacent to the rectum may represent the patient's primary malignan cy. 2. Diffuse osseous metastatic disease.
== END 2018-12-30 09:13 | disposition home or self-care (01) ==
LOC: PET 09:12
PROVIDERS: ATTEND Internal Medicine Hematology & Oncology
DX: C79.51 Secondary malignant neoplasm of bone (principal); C20 Malignant neoplasm of rectum
CPT/HCPCS: 78815; A9552